=== PATIENT | male | born 1975 | race Caucasian/White ===

== ENCOUNTER → 2018-09-09 | Day surgery (SDC) | payer BC ==
[~2018-09-09] MED LIST: ACETAMINOPHEN 1,000 MG/100 ML BTL IV ONE; BUPIVACAINE 0.5% (5MG/ML) PF 30ML VIAL IVP ONE; BUPIVACAINE LIPOSOME/PF 133MG/10ML VIAL IV ONE; DEXAMETHASONE 4 MG/ML 1ML VIAL IVP ONE; EPINEPHRINE 1 MG/ML AMPUL SQ ONE; FENTANYL PF 100MCG/2ML VIAL IV ONE; LIDOCAINE 2% MDV (20MG/ML) 20ML VIAL IV ONE; MIDAZOLAM HCL 2MG/2ML VIAL IV ONE; ONDANSETRON HCL IV 4 MG/2 ML VIAL IVP ONE; PROPOFOL 10 MG/ML VIAL IV ONE; SEVOFLURANE 250 ML INH ONE
--- NOTE | 2018-09-09 14:10 | Operative Note ---
DATE OF SERVICE: 09/09/2018. DATE OF SURGERY: 09/09/2018. Surgeon: Murray Corcoran DO. REFERRING PHYSICIAN: Derek Amaya DO. PREOPERATIVE DIAGNOSES: 1. Tear of the right rotator cuff. 2. Impingement syndrome, right shoulder. 3. Tear of the superior glenoid labrum. POSTOPERATIVE DIAGNOSES: 1. Tear of the right rotator cuff. 2. Impingement syndrome, right shoulder. 3. Tear of the superior glenoid labrum. OPERATION: 1. Arthroscopic repair of the right rotator cuff. 2. Arthroscopic subacromial decompression and acromioplasty of the right shoulder. 3. Arthroscopic repair of the superior glenoid labrum, right shoulder. PROCEDURE: This 43-year-old male was taken to the operating room and placed in the supine position on the operating room table. The patient was then placed on the beach chair position after general anesthesia had been induced, and the right shoulder prepped with Hibiclens and draped in the usual sterile fashion. All bony prominences were well padded and the head well secured. After prepping and draping in the usual sterile fashion, a posterior portal was established in the glenohumeral joint of the right shoulder. Initial evaluation of the joint demonstrated and confirmed a tear of the supraspinatus tendon, and the biceps tendon actually appeared to be intact, as did the subscapularis. However, there was detachment of the superior glenoid labrum at the biceps anchor. There was significant fraying of the labrum anteriorly, but no bony detachment was identified there. An anterior portal was established, and the debridement of the labrum was performed, and also debridement of the superior glenoid down to bone was performed. A rasp also was used to remove soft tissue superiorly. A suture lasso was used to pass through the tear in the superior labrum, and then this was anchored with a 3.0 push lock into the superior labrum to anchor the superior labrum and biceps anchor. This gave us good, tight attachment superiorly. We then debrided the undersurface of the rotator cuff. The scope was then removed and placed in the subacromial space, and thorough subacromial decompression and acromioplasty were performed. We debrided the tear of the rotator cuff, which was seen from the bursal surface very easily. This was actually a very large rotator cuff tear, and this was debrided with a rotating shaver. We debrided to the articular surface and debrided the footprint to healthy-appearing bone, removing all torn soft tissue. We then removed debris from the torn undersurface of the rotator cuff to healthy-appearing cuff. This was a mobile cuff, and I had no difficulty mobilizing it back to its anatomic footprint. We then repaired this rotator cuff using a modification of the [employer] SpeedBridge technique. We placed 2 swivel lock anchors adjacent to the articular surface, 1 at the anterior margin and 1 at the posterior margin of the tear. The sutures were then shuttled through the rotator cuff, and another #2 Fiberwire suture was passed as a horizontal mattress in between these 2 anchors. We then brought the rotator cuff down, grabbing a single limb of each one of these sutures, and attached it to a 3rd swivel lock anchor, which was then placed inferior to the anterior anchor, and traction placed on the sutures to bring the cuff down to its footprint, and it was subsequently impaled. The remaining 3 tails of suture were placed through a 4th swivel lock anchor, which was placed inferior to the posterior anchor, and again the traction placed on these sutures to bring the cuff down to its anatomic position. This was seen to be satisfactory, and the suture tails were cut and the wound debrided and suctioned. Instruments were removed, the portal closed with 4-0 nylon suture. Sterile dressings were applied with an UltraSling, and the patient taken to the recovery room in satisfactory condition. GROSS PATHOLOGY: This patient had a full thickness defect to the supraspinatus and the anterior aspect of the infraspinatus tendon. This was repaired in the manner described above. There was also a detachment of the superior labrum, which was repaired in the manner described above. [facility]
== END | disposition home or self-care (01) ==
LOC: SUR 05:29
PROVIDERS: ATTEND Orthopaedic Surgery
DX: S43.431A Superior glenoid labrum lesion of right shoulder, initial encounter (principal); M75.41 Impingement syndrome of right shoulder; E78.00 Pure hypercholesterolemia, unspecified
CPT/HCPCS: 29827; 29826; 29807; 01630; 64417; J2405; J3010; C9290; 76942; J0171